=== PATIENT | male | born 1970 | race Caucasian/White ===

== ENCOUNTER → 2020-07-20 10:42 | Outpatient (BNVA) | payer OTHER, SELFPAY | PROVIDERS: PCP Internal Medicine; Visit Provider Urology | DX: N40.1 Benign prostatic hyperplasia with lower urinary tract symptoms (principal); N35.919 Unspecified urethral stricture, male, unspecified site; R39.11 Hesitancy of micturition | CPT/HCPCS: 99212 ==

== ENCOUNTER 2020-08-25 12:00 | Outpatient (RCR) | payer OTHER, SELFPAY ==
--- NOTE | 2020-07-25 11:53 | MHC.PT.EP ---
[facility] [place] [facility] [place] [facility] [place] [facility] [address] Sb Mendez [address] [phone] F: [phone] F: [phone] F: [phone] F: [phone] Physical Therapy Plan of Care Date of Evaluation: Date of Surgery: N/A Diagnosis: left arm paresthesia/neck pain Assessment: pt's signs and symptoms consistent w/ cervical radiculopathy w/ potential other working diagnosis of TOS. Will monitor symptoms and progression and treat accordingly. pt presents to physical therapy with pain, decreased range of motion, decreased strength, impaired functional mobility, and impaired postural awareness. pt is a good candidate for skilled PT due to age, potential remediation of impairments, typical disease/condition progression and prognosis, comorbidities, and m notivation. pt would benefit from tailored strengthening and stretching exercise program, functional training, gait training, postural re-training, neuromuscular re-education, modalities as needed for pain, equipment safety demonstration. Frequency and Duration: The patient will be seen 2x/wk for 4 wks Short Term Goals: pt will be I w/ HEP to promote self-management of condition. pt will demo proper sitting posture to promote neutral spine assessed via teachback method. Patient Experience Coordinator Goals: pt will report a statistically significant improvement in self-reported outcome measure, NDI, to promote return to PLOF. pt will report 75% reduction in radicular symptoms to promote full return to work-related tasks. Treatment Plan: Modalities to reduce pain, spasms and effusion. Manual therapy to restore motion and function. Therapeutic exercise to improve strength and flexibility. Neuromuscular re-education for posture and balance. Therapeutic activities to return to functional activities of daily living. Electronically signed by: Analisa Cornelius PT, DPT Please sign and return to therapist. Thank you for your referral.
== END 2020-08-31 17:32 | disposition other institution (70) ==
LOC: HO.PT 12:00
PROVIDERS: PCP Internal Medicine; Visit Provider Internal Medicine
DX: R20.2 Paresthesia of skin (principal)
CPT/HCPCS: 97110; 97112; 97161

== ENCOUNTER 2022-10-23 11:01 | Outpatient (REF) | payer OTHER, SELFPAY ==
[2022-10-23 14:03] LABS: Cholesterol 179 mg/dL; HDL Cholesterol 47 mg/dL; LDL Cholesterol Calculated 120 mg/dl; Triglycerides 64 mg/dL
[2022-10-23 14:13] LABS: Creatinine Urine 169.05 mg/dL; Microalbum/Creatinine Ratio Ur 5.3 ug/mg cr
[2022-10-23 14:18] LABS: Alanine Aminotransferase 41 U/L (0-40); Albumin Level 4.4 g/dL (3.5-5.0); Alkaline Phosphatase 60 U/L (39-117); Anion Gap 15 (12-20); Aspartate Amino Transferase 43 U/L (5-37); Bilirubin Total 1.3 mg/dL (0.0-1.0); Blood Urea Nitrogen 14 mg/dL (9-16); Calcium 9.3 mg/dL (8.4-10.2); Carbon Dioxide 24 mmol/L (22-29); Chloride 108 mmol/L (96-108); Estimated Glomerular Filt Rate > 60; Glucose Random 151 mg/dL (60-115); Potassium 3.9 mmol/L (3.3-5.1); Sodium 143 mmol/L (135-145); Total Protein 7.6 g/dL (6.5-8.0)
[2022-10-23 14:24] LABS: TSH reflex Free T4 1.23 uIU/mL (0.32-4.0); Vitamin D 25-OH Total 39.3 ng/mL (>30)
[2022-10-23 14:59] LABS: Reflex LDLD? No
[2022-10-26 06:44] LABS: TS Negative Control Passed; TS Panel A 0; TS Panel B 1; TS Positive Control Passed; TSpotTB Negative (Negative)
== END 2022-10-23 11:02 | disposition home or self-care (01) ==
LOC: HO.HHCL 11:01
PROVIDERS: Visit Provider Internal Medicine
DX: E11.65 Type 2 diabetes mellitus with hyperglycemia (principal); E11.42 Type 2 diabetes mellitus with diabetic polyneuropathy; F32.A Depression, unspecified
CPT/HCPCS: 36415; 80053; 80061; 82043; 82306; 84443; 86481

== ENCOUNTER 2023-03-04 11:33 | Outpatient (REF) | payer OTHER, SELFPAY ==
[2023-03-05 08:53] LABS: HBS Num1 10.63 mIU/mL (0-7.99); HBc Num1 0.09 S/CO (0.00-0.79); HBsAGNum1 0.34 S/CO (0.00-0.99); HIV AB/AG Nonreactive (Nonreactive); HIV Num 1 0.04 S/CO (0.00-0.99); Hepatitis A Antibody IgM 0.16 Index (0-0.79); Hepatitis B Core Antibody Nonreactive (Nonreactive); Hepatitis B Surface Antigen Negative (Negative); ~HepC Num1 0.28 S/CO (0.00-0.79); ~Hepatitis A Antibody IgM Nonreactive (Nonreactive); ~Hepatitis C Antibody Nonreactive (Nonreactive)
[2023-03-05 09:45] LABS: HBS Num2 11.05 mIU/mL (0-7.99); HBS Num3 10.82 mIU/mL (0-7.99); ~Hepatitis B Surface Antibody GRAYZONE (Nonreactive)
[2023-03-07 09:08] LABS: TS Negative Control Passed; TS Panel A 0; TS Panel B 1; TS Positive Control Passed; TSpotTB Negative (Negative)
== END 2023-03-04 11:34 | disposition home or self-care (01) ==
LOC: HO.HHCL 11:33
PROVIDERS: Visit Provider Internal Medicine
DX: Z11.4 Encounter for screening for human immunodeficiency virus [HIV] (principal); Z11.1 Encounter for screening for respiratory tuberculosis; R74.8 Abnormal levels of other serum enzymes
CPT/HCPCS: 36415; 86481; 86704; 86706; 86709; 86803; 87340; 87389

== ENCOUNTER 2024-05-24 11:00 | Outpatient (REF) | payer OTHER, SELFPAY ==
--- OUTSIDE RECORDS SUMMARY | 2024-05-24 13:11 | XMS_ITS | Encounter Summary ---
Author Organization [employer] Address [address] [facility] 7t [place] [address] Care Team Providers Care Manufacturing Shift Supervisor Name Role Phone Loida Weiner MD Primary Care Provider + Reason for Visit * Reason Onset Date Comments Med Refill 05/19/2024 Encounter Details Date Type Department Care Team ([facility] st Contact Info) Description 05/19/2024 Telephone [facility] [address] [place], [place] [phone] Loida Weiner MD [address] [place], [place] [phone] Med Refill Social History Tobacco Use Types Packs/Day Years Used Date Smoking Tobacco: Never Smokeless Tobacco: Never Alcohol Use Standard Drinks/Week Comments Never 0 (1 standard drink = 0.6 oz pur e alcohol) Depression Answer Date Recorded Patient Health Questionnaire-9 Score 14 02/10/2024 Patient Health Questionnaire-9 Score 14 02/10/2024 Last PHQ-9: Questionnaire Data Not on file 1 04/11/2023 Housing Stability Answer Date Recorded What is your housing situation today? I have nilam ortega 08/27/[address] you li ve. Do you have problems with any of the following? None of the above 08/27/2023 Food Insecurity Answer Date Recorded Within the past 12 months, y ou worried that your food would run out before you got money to buy more: Never True 01/15/2023 Within the past 12 months,th e food you bought just didn't last and you didn't have enough money to get more: Never True Transportation Answer Date Recorded In the past 12 months, has l ack of transportation kept you from medical appts, meetings, work or from getting things needed for daily living? No 01/15/2023 Utilities Answer Date Recorded In the past 12 months, has t he electric, gas, oil or water company threatened to shut off services in your home? No 01/15/2023 Depression Answer Date Recorded Patient Health Questionnaire-2 Score 4 02/10/2024 Sex and Gender Information Value Date Recorded Sex Assigned at Male 01/21/2022 10:18 AM EDT Legal Sex Male 10:18 AM EDT Gender Identity Male 01/21/2022 10:18 AM EDT Sexual Orientation Straight 04/09/2024 8: 48 AM EST documented as of this encounter Miscellaneous Notes * Telephone Encounter - Yudelka Britton RN - 05/19/2024 11:44 AM EST Noted. Per chart review, lidocaine patches sent to the pharmacy on 05/07/24. RN called patient [phone] to inform patient of above information however patient did not answer. RN left VM requestingCB to red team nurses. Patient to f/u PRN. * Telephone Encounter - Yadira Amaro RN - 05/19/2024 11:27 AM EST Pt called into direct nurse line requesting refill for lidocaine patches. Will route to PCP team toadvise. documented in this encounter Plan of Treatment Upcoming Encounters Date Type Department Care Team (Late st Contact Info) Description 07/09/2024 12:15 PM EDT Office Visit [facility] [address] [place], [place] [phone] Loida Weiner MD [address] [place] [address] documented as of this encounter Visit Diagnoses Not on filedocumented in this encounter Additional Health Concerns Assessment Noted Time PHQ-9 Depression Total Score: 14 024 8:46 AM EST documented as of this encounter Care Teams Manufacturing Shift Supervisor Relationship Specialty Start Date End Date Loida Weiner MD [address] [place] [phone] PCP - General Family Medicine 11/20/16 documented as of this encounter
--- OUTSIDE RECORDS SUMMARY | 2024-05-24 13:11 | XMS_ITS | Encounter Summary ---
Author Organization [employer] Address [address] [facility] 7t [place] [address] Care Team Providers Care Mission Worker Name Role Phone Loida Weiner MD Primary Care Provider + Reason for Visit * Reason Comments Med Refill Encounter Details Date Type Department Care Team (Late st Contact Info) Description 04/27/2023 Refill [facility] 230 [place], [place] [phone] Kinjal Dennison MD [address] [place], [place] [phone] Pure hypercholesterolemia Social History Tobacco Use Types Packs/Day Years Used Date Smoking Tobacco: Never Smokeless Tobacco: Never Alcohol Use Standard Drinks/Week Comments Never 0 (1 standard drink = 0.6 oz pur e alcohol) Depression Answer Date Recorded Patient Health Questionnaire-9 Score 24 12/03/2022 Housing Stability Answer Date Recorded What is your housing situation today? I do not have housing (Staying with others, in a hotel, in a long term, living outside on the street, on a beach, in a car, or in a park 01/02/[address] you li ve. Do you have problems with any of the following? None of the above 01/02/2023 Food Insecurity Answer Date Recorded Within the [...] Answer Date Recorded Patient Health Questionnaire-2 Score 6 12/03/2022 Sex and Gender Information Value Date Recorded Sex Assigned at Male 01/21/2022 10:18 AM EDT Legal Sex Male 10:18 AM EDT Gender Identity Male 01/21/2022 10:18 AM EDT Sexual Orientation Straight 04/09/2024 8: 48 AM EST documented as of this encounter Plan of Treatment Upcoming Encounters Date Type Department Care Team (Late st Contact Info) Description 07/09/2024 12:15 PM EDT Office Visit [facility] [address] [place] [phone] Loida Weiner MD [address] [place] [address] documented as of this encounter Visit Diagnoses Diagnosis Pure hypercholesterolemia documented in this encounter Additional Health Concerns Assessment Noted Time PHQ-9 Depression Total Score: 24 023 10:24 AM EDT documented as of this encounter Care Teams Mission Worker Relationship Specialty Start Date End Date Loida Weiner MD [address] [place] [phone] PCP - General Family Medicine 11/20/16 documented as of this encounter
--- OUTSIDE RECORDS SUMMARY | 2024-05-24 13:11 | XMS_ITS | Encounter Summary ---
Author Organization [employer] Address [address] [facility] 7t [place] [address] Care Team Providers Care Screen Making Supervisor Name Role Phone Loida Weiner MD Primary Care Provider + Reason for Visit * Reason Onset Date Comments Chart prep 05/06/2024 Encounter Details Date Type Department Care Team ([facility] st Contact Info) Description 05/06/[address] [facility] [address] [place], [place] [phone] Loida Weiner MD [address] [place], [place] [phone] Chart prep Social History Tobacco Use Types Packs/Day Years [...] encounter Miscellaneous Notes * Telephone Encounter - Vijaya Adams MA - 05/06/2024 3:15 PM EST Chart Prep Labs: not done Images: not applicable Vaccines due: yes Referrals: pending appt Screenings: colonoscopy , Foot Exam Overdue care gaps: Glucose documented in this encounter Plan of Treatment Upcoming Encounters Date Type Department Care Team (Late st Contact Info) Description 07/09/2024 12:15 PM EDT Office Visit [facility] [address] [place] [address] Loida Weiner MD [address] [place] [address] documented as of this encounter Visit Diagnoses Not on filedocumented in this encounter Additional Health Concerns Assessment Noted Time PHQ-9 Depression Total Score: 14 024 8:46 AM EST documented as of this encounter Care Teams Screen Making Supervisor Relationship Specialty Start Date End Date Loida Weiner MD [address] [place] [phone] PCP - General Family Medicine 11/20/16 documented as of this encounter
--- OUTSIDE RECORDS SUMMARY | 2024-05-24 13:11 | XMS_ITS | Encounter Summary ---
Author Organization [employer] Address [address] [place] [address] 7 [place] [address] Care Team Providers Care [employer]om Storage Name Role Phone Loida Weiner MD Primary Care Provider + Reason for Visit * Reason Comments Med Refill Encounter Details Date Type Department Care Team (Late st Contact Info) Description 02/15/2023 Refill [facility] [address] [place], [place] [phone] Loida Weiner MD 230 [place], [place] [phone] Depression, unspecified depression type; Type 2 diabetes mellitus with hyperglycemia, unspecified whether press tender long goods insulin use ([facility]) Social History Tobacco Use Types Packs/Day Years [...] with others, in a hotel, in a senior living, living outside on the street, on a [...] Description 07/09/2024 12:15 PM EDT Office Visit [facility] [address] [place] [phone] Loida Weiner MD [address] [place] [address] documented as of this encounter Visit Diagnoses Diagnosis Depression, unspecified depression type Type 2 diabetes mellitus with hyperglycemia, unspecified whether press tender long goods insulin use ([facility]) documented in this encounter Additional Health Concerns Assessment Noted Time PHQ-9 Depression Total Score: 24 023 10:24 AM EDT documented as of this encounter Care Teams [employer] Storage Relationship Specialty Start Date End Date Loida Weiner MD [address] [place] [phone] PCP - General Family Medicine 11/20/16 documented as of this encounter
--- OUTSIDE RECORDS SUMMARY | 2024-05-24 13:11 | XMS_ITS | Encounter Summary ---
Author Organization [employer] Address [address] [place] [address] 7t [place] [address] Care Team Providers Care Binder Caser Name Role Phone Loida Weiner MD Primary Care Provider + Encounter Details Date Type Department Care Team (Late st Contact Info) Description 04/09/2022 Orders Only [facility] [address] [place], [place] [phone] Abbi Hdez LPN Social History Tobacco Use Types Packs/Day Years Used Date Smoking Tobacco: Never Assessed Sex and Gender Information Value Date Recorded Sex Assigned at Male 01/21/2022 10:18 AM EDT Legal Sex Male 10:18 AM EDT Gender Identity Male 01/21/2022 10:18 AM EDT Sexual Orientation Straight 04/09/2024 8: 48 AM EST documented as of this encounter Plan of Treatment Upcoming Encounters Date Type Department Care Team (Late st Contact Info) Description 07/09/2024 12:15 PM EDT Office Visit [facility] 230 [place], [place] [phone] Loida Weiner MD 230 [place] [address] documented as of this encounter Procedures Procedure Name Priority Date/Time Associated Diagnosis Comments T-SPOT(R).TB Routine 10/23/2022 11:04 AM EDT ALBUMIN, RANDOM URINE W/CREATININE Routine 10/23/2022 11:04 AM EDT documented in this encounter Results * T-SPOT??.TB (10/23/2022 11:04 AM EDT) T Spot TB Negative Negative [facility] Comment:A negative test resu lt does not exclude the possibilityof exposure to or infection with Mycobacteriumtuberculosis (M. tuberculosis). Patients with recentexposure to TB infected individuals exhibiting anegative T-SPOT.TB result should be considered forretesting within 6 weeks or if other relevant clinicalsymptoms indicate. Results from T-SPOT.TB testing mustbe used in conjunction with each individual'sepidemiological history, current medical status,and results of other diagnostic evaluations.The T-SPOT.TB test is qualitative and results arereported as positive, borderline, or negative, giventhat the test controls perform as expected. In linewith the Centers for Disease Control and Prevention's2010 recommendation to report quantitative measurementsalongside the qualitative result, the laboratoryprovides spot counts for informational purposes only.The T-SPOT.TB test should not be interpreted as aquantitative test. TS PANEL A 0 [facility] TS PANEL B 1 [facility] Negative Control Passed [facility] Positive Control Passed [facility] Comment:For additional infor mation, please refer tohttp://education.[employer].com/faq/CND382(This link is being provided for informational/educational purposes only.)THIS TEST WAS PERFORMED AT:[id number] [place] [address]OHAUCTXOLIVER HARRISON MD,PHD 10/23/2022 11:0 4 AM EDT 10/23/2022 1:02 PM EDT us Loida Weiner MD LAB BLOOD ORDERABLES Fin al Result [facility] [address] [place] [phone] * Albumin, Random Urine W/Creatinine (10/23/2022 11:04 AM EDT) Creatinine, Urine 169.05 mg/dL [facility] Microalbumin Urine 9.0 mg/L [facility] Microalbum Creatinine Ratio Ur 5.3 ug/mg cr [facility] Comment:Albumin/Creatinine R atio Reference Ranges: Normal: < 30 ug/mg creatinine Microalbuminuria: 30 - 300 ug/mg creatinineClinical Albuminuria: > 300 ug/mg creatinine 10/23/2022 11:0 4 AM EDT 10/23/2022 12:59 PM EDT us Loida Weiner MD LAB URINE ORDERABLES Fin al Result Performing Organization Address City/State/[facility] Co de Phone Number [facility] [address] [place], [place] [phone] documented in this encounter Visit Diagnoses Not on filedocumented in this encounter Care Teams Binder Caser Relationship Specialty Start Date End Date Loida Weiner MD [address] [place] [phone] PCP - General Family Medicine 11/20/16 documented as of this encounter
--- OUTSIDE RECORDS SUMMARY | 2024-05-24 13:11 | XMS_ITS | Encounter Summary ---
Author Organization [employer] Address [address] [place] [address] 7 [place] [address] Care Team Providers Care Finance Assistant Name Role Phone Loida Weiner MD Primary Care Provider + Reason for Visit * Reason Onset Date Comments Med Refill 08/21/2023 Encounter Details Date Type Department Care Team ([facility] st Contact Info) Description 08/21/2023 Telephone [facility] [address] [place], [place] [phone] Loida Weiner MD [address] [place], [place] [phone] Med Refill Social History Tobacco Use Types Packs/Day Years Used Date Smoking Tobacco: Never Smokeless Tobacco: Never Alcohol Use Standard Drinks/Week Comments Never 0 (1 standard drink = 0.6 oz pur e alcohol) Depression Answer Date Recorded Patient Health Questionnaire-9 Score 9 06/17/2023 Patient Health Questionnaire-9 Score 9 06/17/2023 Last PHQ-9: Questionnaire Data Not on file 0 06/17/2023 Housing Stability Answer Date Recorded What is your housing situation today? I do not have housing (Staying with others, in a hotel, in a intermediate, living outside on the street, on a [...] Answer Date Recorded Patient Health Questionnaire-2 Score 2 06/17/2023 Sex and Gender Information Value Date Recorded Sex Assigned at Male 01/21/2022 10:18 AM EDT Legal Sex Male 10:18 AM EDT Gender Identity Male 01/21/2022 10:18 AM EDT Sexual Orientation Straight 04/09/2024 8: 48 AM EST documented as of this encounter Miscellaneous Notes * Telephone Encounter - Abbi Hdez LPN - 08/21/2023 2:42 PM EDT Medication pended to PCP. * Telephone Encounter - Lily Liang - 08/21/2023 2:39 PM EDT TC from pt requesting medication refill. Medications needing refill : valACYclovir (Valtrex) 1 g tablet To be sent to: [facility] - [place], [place] - [address] [facility] documented in this encounter Plan of Treatment Upcoming Encounters Date Type Department Care Team (Late st Contact Info) Description 07/09/2024 12:15 PM EDT Office Visit [facility] [address] [place] [address] Loida Weiner MD [address] [place] [address] documented as of this encounter Visit Diagnoses Not on filedocumented in this encounter Additional Health Concerns Assessment Noted Time PHQ-9 Depression Total Score: 9 06/17/19 24 2:43 PM EDT documented as of this encounter Care Teams Finance Assistant Relationship Specialty Start Date End Date Loida Weiner MD [address] [place] [phone] PCP - General Family Medicine 11/20/16 documented as of this encounter
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
--- OUTSIDE RECORDS SUMMARY | 2024-05-24 13:11 | XMS_ITS | Encounter Summary ---
Author Organization [employer] Address [address] [facility] 7t [place] [address] Care Team Providers Care Pci Security Consultant Name Role Phone Loida Weiner MD Primary Care Provider + Reason for Visit * Reason Comments Med Refill Encounter Details Date Type Department Care Team (Late st Contact Info) Description 05/16/2024 Refill [facility] [address] [place], [place] [phone] Loida Weiner MD [address] [place], [place] [phone] Type 2 diabetes mellitus with hyperglycemia, unspecified whether termite inspector insulin use ([facility]) Social History Tobacco Use Types Packs/Day [...] Description 07/09/2024 12:15 PM EDT Office Visit [facility] [address] [place] [address] Loida Weiner MD [address] [place] [address] documented as of this encounter Visit Diagnoses Diagnosis Type 2 diabetes mellitus with hyperglycemia, unspecified whether termite inspector insulin use ([facility]) documented in this encounter Additional Health Concerns Assessment Noted Time PHQ-9 Depression Total Score: 14 024 8:46 AM EST documented as of this encounter Care Teams Pci Security Consultant Relationship Specialty Start Date End Date Loida Weiner MD [address] [place] [phone] PCP - General Family Medicine 11/20/16 documented as of this encounter
--- OUTSIDE RECORDS SUMMARY | 2024-05-24 13:11 | XMS_ITS | Encounter Summary ---
Author Organization [employer] Address [address] [facility] 7t [place] [address] Care Team Providers Care Sheetmetal Worker Name Role Phone Loida Weiner MD Primary Care Provider + Reason for Visit * Reason Onset Date Comments Med Refill 04/09/2024 Encounter Details Date Type Department Care Team (Late st Contact Info) Description 04/09/2024 Refill [facility] [address] [place], [place] [phone] Loida Weiner MD 230 [place], [place] [phone] Vitamin D deficiency Social History Tobacco Use Types Packs/Day Years [...] Description 07/09/2024 12:15 PM EDT Office Visit [facility] [address] [place] [address] Loida Weiner MD [address] [place] [address] documented as of this encounter Visit Diagnoses Diagnosis Vitamin D deficiency documented in this encounter Additional Health Concerns Assessment Noted Time PHQ-9 Depression Total Score: 14 024 8:46 AM EST documented as of this encounter Care Teams Sheetmetal Worker Relationship Specialty Start Date End Date Loida Weiner MD [address] [place] [phone] PCP - General Family Medicine 11/20/16 documented as of this encounter
--- OUTSIDE RECORDS SUMMARY | 2024-05-24 13:11 | XMS_ITS | Encounter Summary ---
Author Organization [employer] Address [address] [facility] [address] 7[address] [place] [address] Care Team Providers Care Pumper Brewery Name Role Phone Loida Weiner MD Primary Care Provider + Encounter Details Date Type Department Care Team ([facility] st Contact Info) Description 07/15/2023 Telephone [facility] MED[facility]INE 230 [place], [place] [phone] Loida Weiner MD 230 [place], [place] [phone] Social History Tobacco Use Types Packs/Day Years [...] with others, in a hotel, in a longterm, living outside on the street, on a [...] Description 07/09/2024 12:15 PM EDT Office Visit [facility] [address] [place] [phone] Loida Weiner MD [address] [place] [address] documented as of this encounter Visit Diagnoses Not on filedocumented in this encounter Additional Health Concerns Assessment Noted Time PHQ-9 Depression Total Score: 9 06/17/19 24 2:43 PM EDT documented as of this encounter Care Teams Pumper Brewery Relationship Specialty Start Date End Date Loida Weiner MD [address] [place] [phone] PCP - General Family Medicine 11/20/16 documented as of this encounter
--- OUTSIDE RECORDS SUMMARY | 2024-05-24 13:11 | XMS_ITS | Encounter Summary ---
Author Organization [employer] Address [address] [facility] [address] 7t [place] [address] Care Team Providers Care Nurse Transitional Name Role Phone Loida Weiner MD Primary Care Provider + Encounter Details Date Type Department Care Team (Latest Contact Info) Description 05/07/2024 Travel Social History Tobacco Use Types Packs/Day Years [...] Description 07/09/2024 12:15 PM EDT Office Visit [facility] 230 [place] [address] Loida Weiner MD 230 [place] [address] documented as of this encounter Visit Diagnoses Not on filedocumented in this encounter Additional Health Concerns Assessment Noted Time PHQ-9 Depression Total Score: 14 024 8:46 AM EST documented as of this encounter Care Teams Nurse Transitional Relationship Specialty Start Date End Date Loida Weiner MD 230 [place] [address] PCP - General Family Medicine 11/20/16 documented as of this encounter
--- OUTSIDE RECORDS SUMMARY | 2024-05-24 13:11 | XMS_ITS | Encounter Summary ---
Author Organization [employer] Address [address] [place] [address] 7 [place] [address] Care Team Providers Care Licensed Master Social Worker Name Role Phone Loida Weiner MD Primary Care Provider + Reason for Visit * Reason Onset Date Comments Med Refill Appointment 03/05/2023 [facility] will be cancel Encounter Details Date Type Department Care Team (Late st Contact Info) Description 03/05/2023 Refill [facility] MED[facility]INE 230 [place], [place] [phone] Loida Weiner MD 230 [place], [place] [phone] Type 2 diabetes mellitus with hyperglycemia, unspecified whether joint terminal attack controller insulin use ([facility]); Depression, unspecified depression type; Vitamin D deficiency Social History Tobacco Use [...] with others, in a hotel, in a snf, living outside on the street, on a [...] encounter Miscellaneous Notes * Telephone Encounter - Lien Espino [place] - 03/06/2023 10:17 AM EST T/C placed to pt unable to left a voice massage. This call was regarding to inform pt that his apt for today with [facility] will be cancel due Clinician is not available and we need to r/s his apt. documented in this encounter Plan of Treatment Upcoming Encounters Date Type Department Care Team (Late st Contact Info) Description 07/09/2024 12:15 PM EDT Office Visit [facility]INE 230 [place] [address] Loida Weiner MD [address] [place] [address] documented as of this encounter Visit Diagnoses Diagnosis Type 2 diabetes mellitus with hyperglycemia, unspecified whether joint terminal attack controller insulin use ([facility]) Depression, unspecified depression type Vitamin D deficiency documented in this encounter Additional Health Concerns Assessment Noted Time PHQ-9 Depression Total Score: 24 023 10:24 AM EDT documented as of this encounter Care Teams Licensed Master Social Worker Relationship Specialty Start Date End Date Loida Weiner MD [address] [place] [phone] PCP - General Family Medicine 11/20/16 documented as of this encounter
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
[2024-05-24 13:40] LABS: Creatinine Urine 169.61 mg/dL; Microalbum/Creatinine Ratio Ur 2.9 ug/mg cr (<30)
[2024-05-24 13:42] LABS: Alanine Aminotransferase 56 U/L (0-40); Albumin Level 4.1 g/dL (3.5-5.0); Alkaline Phosphatase 61 U/L (39-117); Anion Gap 12 (12-20); Aspartate Amino Transferase 40 U/L (5-37); Bilirubin Total 1.2 mg/dL (0.0-1.0); Blood Urea Nitrogen 17 mg/dL (9-16); Calcium 9.1 mg/dL (8.4-10.2); Carbon Dioxide 28 mmol/L (22-29); Chloride 107 mmol/L (96-108); Cholesterol 257 mg/dL (<200); Estimated Glomerular Filt Rate > 60; Glucose Random 136 mg/dL (60-115); HDL Cholesterol 45 mg/dL (>40); LDL Cholesterol Calculated 190 mg/dL (<100); Potassium 3.9 mmol/L (3.3-5.1); Sodium 143 mmol/L (135-145); Total Protein 7.8 g/dL (6.5-8.0); Triglycerides 114 mg/dL (<150)
[2024-05-24 13:59] LABS: TSH reflex Free T4 1.61 uIU/mL (0.32-4.0)
[2024-05-24 14:23] LABS: Reflex LDLD? No
== END 2024-05-24 11:01 | disposition home or self-care (01) ==
LOC: HO.HHCL 11:00
PROVIDERS: Visit Provider Internal Medicine
DX: Z00.00 Encounter for general adult medical examination without abnormal findings (principal); E11.9 Type 2 diabetes mellitus without complications; R03.0 Elevated blood-pressure reading, without diagnosis of hypertension; F33.41 Major depressive disorder, recurrent, in partial remission; K76.9 Liver disease, unspecified
CPT/HCPCS: 36415; 80053; 80061; 82043; 82306; 82570; 84443